=== PATIENT | male | born 1995 | race Caucasian/White ===

== ENCOUNTER 2018-06-03 09:31 | Emergency (ER) | payer MEDICAID, OTHER, SELFPAY ==
[~2018-06-03 09:31] MED LIST: Sodium Chloride Irrig Solution 250 ML BOT ONE
[2018-06-03] MEDS ORDERED: Lidocaine 2% 20 ml MDV ONE (10:21)
[2018-06-03] MEDS ORDERED: Bacitracin Zinc 1 Packet ONE (10:48)
[2018-06-03] MEDS ORDERED: Adacel (T-DAP) 0.5 ML SYRINGE ONE (10:48)
== END 2018-06-03 11:12 | disposition home or self-care (01) ==
LOC: MADERS 09:31
DX: S61.211A Laceration without foreign body of left index finger without damage to nail, initial encounter (principal); F17.210 Nicotine dependence, cigarettes, uncomplicated; F90.9 Attention-deficit hyperactivity disorder, unspecified type; F31.9 Bipolar disorder, unspecified; W26.0XXA Contact with knife, initial encounter
CPT/HCPCS: 12002; 90471; 90715; J2001

== ENCOUNTER 2018-10-14 14:45 | Emergency (ER) | payer SELFPAY ==
[2018-10-14] MEDS ORDERED: traMADol HCl 50 MG TAB ONE (15:48)
== END 2018-10-14 15:53 | disposition home or self-care (01) ==
LOC: MADERS 14:45
DX: N50.811 Right testicular pain (principal); F17.210 Nicotine dependence, cigarettes, uncomplicated; F90.9 Attention-deficit hyperactivity disorder, unspecified type; F31.9 Bipolar disorder, unspecified
CPT/HCPCS: 99283

== ENCOUNTER 2019-04-17 08:01 | Emergency (ER) | payer SELFPAY ==
[2019-04-17] MEDS ORDERED: Tetracaine 0.5% OPHTH SOLN/PF 4 ML BOT ONE ×2 (08:16→08:48)
== END 2019-04-17 09:01 | disposition home or self-care (01) ==
LOC: MADERS 08:01
DX: S05.01XA Injury of conjunctiva and corneal abrasion without foreign body, right eye, initial encounter (principal); F90.9 Attention-deficit hyperactivity disorder, unspecified type; F31.9 Bipolar disorder, unspecified; F17.210 Nicotine dependence, cigarettes, uncomplicated; X58.XXXA Exposure to other specified factors, initial encounter
CPT/HCPCS: 99283

== ENCOUNTER 2024-10-06 18:23 | Emergency (ER) | payer SELFPAY ==
[2024-10-06] MEDS ORDERED: Amoxicillin/Potassium Clav 875 MG TAB ONE (19:13)
== END 2024-10-06 19:20 | disposition home or self-care (01) ==
LOC: MADERS 18:23
DX: H66.92 Otitis media, unspecified, left ear (principal); K92.1 Melena; F17.210 Nicotine dependence, cigarettes, uncomplicated; F17.220 Nicotine dependence, chewing tobacco, uncomplicated
CPT/HCPCS: 99282

== ENCOUNTER 2024-10-13 07:01 | Emergency (ER) | payer SELFPAY ==
[2024-10-13] MEDS ORDERED: methylPREDNISolone Acetate 80 mg (1 mL) VIAL ONE (08:01)
== END 2024-10-13 08:17 | disposition home or self-care (01) ==
LOC: MADERS 07:01
DX: J20.8 Acute bronchitis due to other specified organisms (principal); B97.89 Other viral agents as the cause of diseases classified elsewhere; F17.210 Nicotine dependence, cigarettes, uncomplicated; F17.220 Nicotine dependence, chewing tobacco, uncomplicated
CPT/HCPCS: 71046; 87428; 96372; J1040; J7620

== ENCOUNTER 2024-11-28 15:54 | Emergency (ER) | payer SELFPAY ==
[2024-11-28] MEDS ORDERED: Dexamethasone 10 MG/ML VIAL ONE (16:20)
[2024-11-28] MEDS ORDERED: Acetaminophen 500 MG TAB ONE (16:20)
[2024-11-28] MEDS ORDERED: Ibuprofen 800 MG TAB ONE (17:02)
[2024-11-28] MEDS ORDERED: Cyclobenzaprine 10 MG TAB ONE (17:02)
== END 2024-11-28 17:11 | disposition home or self-care (01) ==
LOC: MADERS 15:54
DX: M25.561 Pain in right knee (principal); F17.210 Nicotine dependence, cigarettes, uncomplicated; F17.220 Nicotine dependence, chewing tobacco, uncomplicated; W19.XXXA Unspecified fall, initial encounter
CPT/HCPCS: 96372; 99283; J1100

== ENCOUNTER 2025-01-27 06:53 | Emergency (ER) | payer SELFPAY ==
[2025-01-27] MEDS ORDERED: Dexamethasone 10 MG/ML VIAL ONE (08:04)
== END 2025-01-27 08:50 | disposition home or self-care (01) ==
LOC: MADERS 06:53
DX: S83.91XA Sprain of unspecified site of right knee, initial encounter (principal); F17.210 Nicotine dependence, cigarettes, uncomplicated; F17.220 Nicotine dependence, chewing tobacco, uncomplicated; W22.8XXA Striking against or struck by other objects, initial encounter
CPT/HCPCS: 96372; 99283; J1100

== ENCOUNTER 2025-02-07 11:11 | Emergency (ER) | payer OTHER, SELFPAY ==
[2025-02-07] MEDS ORDERED: Acetaminophen 500 MG TAB ONE (12:56)
== END 2025-02-07 13:00 | disposition home or self-care (01) ==
LOC: MADERS 11:11
DX: S06.0X1A Concussion with loss of consciousness of 30 minutes or less, initial encounter (principal); S16.1XXA Strain of muscle, fascia and tendon at neck level, initial encounter; F17.210 Nicotine dependence, cigarettes, uncomplicated; F17.220 Nicotine dependence, chewing tobacco, uncomplicated; W01.198A Fall on same level from slipping, tripping and stumbling with subsequent striking against other object, initial encounter; Y99.0 Civilian activity done for income or pay
CPT/HCPCS: 70450; 72125